=== PATIENT | male | born 1965 | race Caucasian/White ===

== ENCOUNTER 2017-11-27 00:46 | Observation (INO) | payer OTHER ==
[~2017-11-27] VITALS: Ht 193 cm; Wt 63.5 kg
--- NOTE | 2017-11-27 01:05 | ED GI/GU/ABDOMINAL COMPLAINT ---
History of Present Illness General Chief Complaint: Abdominal Pain/Flank Pain Stated Complaint: RUQ ABD PAIN Source: patient Exam Limitations: clinical condition (severe pain) Vital Signs & Intake/Output Vital Signs & Intake/Output Vital Signs Date Time Temp Pulse Resp B/P B/P Pulse O2 O2 Flow FiO2 Mean Ox Delivery Rate 11/27 0539 98.4 85 16 111/61 99 Room Air 11/27 0338 98.3 87 18 118/80 96 Room Air 11/27 0050 98.2 106 18 126/89 96 Room Air Allergies Coded Allergies: No Known Allergies (11/27/17) Reconcile Medications No Known Home Medications Triage Note: PT BIBA FROM HOME WITH C/O SHARP RUQ ABD PAIN THAT STARTED 2 HOURS AGO. PT APPEARS VERY UNCOMFORTABLE. DENIES N/V. STATES HE HAS A HERNIA WITH CONSTANT DULL PAIN BUT THIS IS DIFFERENT Triage Nurses Notes Reviewed? yes Onset: Gradual Duration: hour(s):, constant, changing over time, continues in ED, getting worse Quality/Severity: sharpness, severe, stabbing Location: right lower quadrant, right upper quadrant Radiation: no radiation HPI: Patient presents for evaluation of a right upper quadrant abdominal pain that began a few days ago. Described as a sharp pain that seemed to occur after eating. Patient denies any prior episodes like this. The pain is considered sharp and severe and nothing seems to make it feel better. (Kierra MONTENEGRO,Viraj Lamb) Past History Travel History Traveled to [place] past 21 day No Medical History Any Pertinent Medical History? 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 No (Viraj Lozada MD) Review of Systems Review of Systems Constitutional: Reports: no symptoms. EENTM: Reports: no symptoms. Respiratory: Reports: no symptoms. Cardiovascular: Reports: no symptoms. GI: Reports: see HPI. Genitourinary: Reports: no symptoms. Musculoskeletal: Reports: no symptoms. Skin: Reports: no symptoms. Neurological/Psychological: Reports: no symptoms. Hematologic/Endocrine: Reports: no symptoms. Immunologic/Allergic: Reports: no symptoms. All Other Systems: Reviewed and Negative (Kierra MONTENEGRO,Viraj Lamb) Physical Exam Physical Exam Gastrointestinal: SEE BELOW Comments: Gen.: Well-nourished, well-developed, no acute respiratory distress. Head: Normocephalic, atraumatic. Eyes: Normal inspection bilaterally Ears: Normal inspection bilaterally Nose: Normal inspection Throat/mouth : Moist mucosa Neck: Supple, full range of motion, no goiter Heart: Regular rate and rhythm, no murmurs rubs or gallops Lungs: Clear to auscultation bilaterally with normal air entry Chest: Nontender Back: Normal range of motion Abdomen: Soft, right upper quadrant and epigastric tenderness with brief voluntary guarding but no rebound nondistended, normal bowel sounds Extremities: Normal range of motion grossly, equal radial pulses, no cyanosis clubbing or edema Neurologic: Cranial nerves grossly intact, speech is clear Skin: warm and dry Psychiatric: Calm, cooperative, no apparent delusions or hallucinations Core Measures ACS in differential dx? No Sepsis Present: No Sepsis Focused Exam Completed? No (Kierra MONTENEGRO,Viraj Lamb) Progress Differential Diagnosis: BILIARY COLIC, RENAL COLIC, LIVER DISEASE, PANCREATITIS, BOWEL OBSTRUCTION Plan of Care: Orders Procedure Date/time Status Nothing by Mouth 11/27 B Active EKG 11/27 0330 Active URINALYSIS 11/27 010 Complete LIPASE 11/27 010 Complete COMPREHENSIVE METABOLIC PANEL 11/28 103 Complete CBC WITHOUT DIFFERENTIAL 11/28 103 Complete Laboratory Tests 11/27/17 0251: Urinalysis MANY H, Urine Color YEL, Urine Clarity CLDY H, Urine pH 7.5, Ur Specific [place] 1.020, Urine Protein NEG, Urine Ketones >=80, Urine Nitrite NEG , Urine Bilirubin NEG, Urine Urobilinogen 1.0, Ur Leukocyte Esterase NEG, Ur Microscopic SEDIMENT EXAMINED, Urine WBC RARE, Ur Epithelial Cells RARE, Urine Mucus RARE, Urine Hemoglobin NEG, Urine Glucose NEG 11/27/17 0111: Anion Gap 14, Estimated GFR > 60, BUN/Creatinine Ratio 17.0, Glucose 122 H, Calcium 10.4 H, Total Bilirubin 0.8, AST 19, ALT 24, Alkaline Phosphatase 111, Total Protein 7.8, Albumin 4.4, Globulin 3.4, Albumin/Globulin Ratio 1.3, Lipase 94, CBC w Diff NO MAN DIFF REQ, RBC 5.42, MCV 89.2, MCH 30.4, MCHC 34.0, RDW 13.6, MPV 8.4, Gran % 82.6 H, Lymphocytes % 10.4 L, Monocytes % 5.5, Eosinophils % 1.1, Basophils % 0.4, Absolute Granulocytes 9.3 H, Absolute Lymphocytes 1.2, Absolute Monocytes 0.6, Absolute Eosinophils 0.1, Absolute Basophils 0 Diagnostic Imaging: Discussed w/RAD: CT Scan. Radiology Impression: PATIENT: CARMELO ZEPEDA PRESENT AGE: 52 PATIENT ACCOUNT NO: [id number] : 63 LOCATION: [facility] ORDERING PHYSICIAN: Viraj Lozada MD SERVICE DATE: 11/27/17 EXAM TYPE: CAT - CT ABD & PELVIS W/O IV CONTRAS EXAMINATION: CT ABDOMEN AND PELVIS WITHOUT CONTRAST CLINICAL INFORMATION: Right-sided abdominal pain, sharp and intermittent. COMPARISON: None TECHNIQUE: Multidetector volumetric imaging was performed from the superior aspect of the liver through the pubic symphysis. Sagittal and coronal reformatted images were obtained on the technologist's workstation. DLP: 334 mGy-cm FINDINGS: LUNG BASES: The visualized lung bases are unremarkable. LIVER, GALLBLADDER, AND BILIARY TREE: The liver is normal in size, shape, and attenuation. No focal hepatic lesion or biliary ductal dilatation is present. The gallbladder is unremarkable with no evidence of radiopaque gallstones, gallbladder wall thickening, or obvious pericholecystic inflammatory changes. PANCREAS: Unremarkable. SPLEEN: Unremarkable. ADRENAL GLANDS: Unremarkable. KIDNEYS AND URETERS: The kidneys are normal in size, shape, and attenuation. No hydronephrosis, hydroureter, or calculi seen. No perinephric stranding. BLADDER: Unremarkable. GASTROINTESTINAL TRACT: The stomach is distended without wall thickening. The proximal small bowel is normal in caliber. There are loops of small bowel in the pelvis which are dilated with air -fluid levels. There is a large left inguinal hernia containing small bowel, with dilated bowel proximal to entry into the hernia and decompressed bowel beyond the hernia. Inflammatory changes are also noted within the hernia sac. No colonic wall thickening or inflammatory change. Gas and stool in the colon. ABDOMINAL WALL: Large left inguinal hernia containing small bowel and fluid. LYMPH NODES: Normal. VASCULAR: Unremarkable. PELVIC VISCERA: The prostate and seminal vesicles are unremarkable. OSSEOUS STRUCTURES: No acute or suspicious osseous abnormality. Mild degenerative changes of the spine and hips. IMPRESSION : Findings suggestive of a partial or early small bowel obstruction, with the lead point at a large left inguinal hernia. Small bowel is seen within the hernia sac with fluid as well. Cannot exclude an incarcerated hernia. DICTATED BY: Navneet Henry MD DATE/TIME DICTATED:11/27/17133 PRODUCT SAFETY HEAD: ABDOULAYE DATE/TIME TRANSCRIBED:11/27/17133 CONFIDENTIAL, DO NOT COPY WITHOUT APPROPRIATE AUTHORIZATION. <Electronically signed in Other Vendor System> SIGNED BY: Carl MONTENEGRO,Navneet 11/27/17 0140 Initial ED EKG: NSR, no ST T wave changes Comments: 11/27/2017 1:56:42 AM I have updated Carmelo on his CAT scan report and with additional exam of the scrotum, the patient does have an incarcerated left inguinal hernia. I've discussed this case with Dr. Fields and have just paged the surgical PA. 11/27/2017 6:59:18 AM patient evaluated by the surgical PA and orders placed. Patient will be taken to the OR this morning for surgical correction of his incarcerated hernia. 11/27/2017 7:15:53 AM patient signed out to Dr. Melgoza at shift exchange consultant. (Kierra MONTENEGRO,Viraj Lamb) Departure Departure Disposition: STILL A PATIENT Condition: Stable Clinical Impression Primary Impression: Incarcerated left inguinal hernia Secondary Impressions: Partial small bowel obstruction Referrals: Dominick Mock MD (PCP/Family) Departure Forms: Customer Survey General Discharge Information Prescriptions: Current Visit Scripts No Known Home Medications OR/GI Note Spoke With: Pablito Leavitt DO ED Treatment Decision: CARMELO ZEPEDA requires urgent operative management of a left inguinal hernia, incarcerated, that cannot be performed in the Emergency Room setting. Transport To: [facility] (Viraj Lozada MD) Departure Disposition: STILL A PATIENT Condition: Stable Clinical Impression Primary Impression: Incarcerated left inguinal hernia Secondary Impressions: Partial small bowel obstruction Referrals: Dominick Mock MD (PCP/Family) Departure Forms: Customer Survey General Discharge Information Prescriptions: Current Visit Scripts No Known Home Medications OR/GI Note Spoke With: Pablito Leavitt DO ED Treatment Decision: CARMELO ZEPEDA requires urgent operative management of a left inguinal hernia, incarcerated, that cannot be performed in the Emergency Room setting. Transport To: [facility]
[2017-11-27 01:19] LABS: ABSOLUTE BASOPHIL COUNT 0 /CUMM (0.0-0.2); ABSOLUTE EOSINOPHIL COUNT 0.1 /CUMM (0.0-0.7); ABSOLUTE GRANULOCYTE CT 9.3 /CUMM (1.4-6.5); ABSOLUTE LYMPH COUNT 1.2 /CUMM (1.2-3.4); ABSOLUTE MONOCYTE COUNT 0.6 /CUMM (0.10-0.60); BASOPHIL % 0.4 % (0.0-2.0); EOSINOPHIL % 1.1 % (0-5); GRANULOCYTE % 82.6 % (42.2-75.2); HEMATOCRIT 48.4 % (42-52); MEAN CORPUSCULAR HGB 30.4 PG (27.0-31.0); MEAN CORPUSCULAR VOLUME 89.2 FL (80.0-94.0); MEAN PLATELET VOLUME 8.4 FL (7.4-10.4); PLATELET COUNT 314 /CUMM (130-400); RBC DISTRIBUTION WIDTH 13.6 % (11.5-14.5); RED BLOOD CELL CT 5.42 /CUMM (4.70-6.10); WHITE BLOOD CELL COUNT 11.2 /CUMM (4.8-10.8)
--- NOTE | 2017-11-27 01:40 | CT SCAN REPORT ---
EXAMINATION: CT ABDOMEN AND PELVIS WITHOUT CONTRAST CLINICAL INFORMATION: Right-sided abdominal pain, sharp and intermittent. COMPARISON: None TECHNIQUE: Multidetector volumetric imaging was performed from the superior aspect of the liver through the pubic symphysis. Sagittal and coronal reformatted images were obtained on the technologist's workstation. DLP: 334 mGy-cm FINDINGS: LUNG BASES: The visualized lung bases are unremarkable. LIVER, GALLBLADDER, AND BILIARY TREE: The liver is normal in size, shape, and attenuation. No focal hepatic lesion or biliary ductal dilatation is present. The gallbladder is unremarkable with no evidence of radiopaque gallstones, gallbladder wall thickening, or obvious pericholecystic inflammatory changes. PANCREAS: Unremarkable. SPLEEN: Unremarkable. ADRENAL GLANDS: Unremarkable. KIDNEYS AND URETERS: The kidneys are normal in size, shape, and attenuation. No hydronephrosis, hydroureter, or calculi seen. No perinephric stranding. BLADDER: Unremarkable. GASTROINTESTINAL TRACT: The stomach is distended without wall thickening. The proximal small bowel is normal in caliber. There are loops of small bowel in the pelvis which are dilated with air-fluid levels. There is a large left inguinal hernia containing small bowel, with dilated bowel proximal to entry into the hernia and decompressed bowel beyond the hernia. Inflammatory changes are also noted within the hernia sac. No colonic wall thickening or inflammatory change. Gas and stool in the colon. ABDOMINAL WALL: Large left inguinal hernia containing small bowel and fluid. LYMPH NODES: Normal. VASCULAR: Unremarkable. PELVIC VISCERA: The prostate and seminal vesicles are unremarkable. OSSEOUS STRUCTURES: No acute or suspicious osseous abnormality. Mild degenerative changes of the spine and hips. IMPRESSION: Findings suggestive of a partial or early small bowel obstruction, with the lead point at a large left inguinal hernia. Small bowel is seen within the hernia sac with fluid as well. Cannot exclude an incarcerated hernia.
--- NOTE | 2017-11-27 03:17 | History & Physical Pre-Op ---
MajoPrincess 11/27/17 0302: General Information and HPI MD Statement: I have seen and personally examined MAGDALENE ZEPEDA and documented this H&P. The patient is a 52 year old M who presented with a patient stated chief complaint of ABDOMINAL PAIN, Source of Information: patient Exam Limitations: no limitations History of Present Illness: 52 y/o male presents to ER with left groin and generalized abdominal pain. He has a 2 year history of a sliding hernia and usually he can maunally self- reduce. over the last few weeks he has noticed problems with reducing his hernia and tonight he was unable to despite his usual measures. He has pain and fullness in the groin with radiating abdominal pain into the RUQ. His pain is controlled at a 3. He denies fevers or chills. He has nausea with decreased appetite, BM this am was normal. 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 EENTM: Denies: no symptoms. Cardiovascular: Denies: chest pain, edema, palpitations. Respiratory: Denies: cough, short of breath. GI: Reports: abdominal pain, nausea. Denies: bloating, constipation, diarrhea, distention, bloody stool, vomiting. Genitourinary: Denies: no symptoms. Hematologic/Endocrine: Denies: bruising, bleeding. Exam & Diagnostic Data Last 24 Hrs of Vital Signs/I&O Vital Signs Date Time Temp Pulse Resp B/P B/P Pulse O2 O2 Flow FiO2 Mean Ox Delivery Rate 11/27 0050 98.2 106 18 126/89 96 Room Air Physical Exam: Patient is alert and oriented, pain controlled answers questions HEENT -WNL Neck -supple, NT, no bruits chest -CTA symmetric heart-RRR without MRG Abdomen -flat, without distention, generalized tenderness, no guarding or rebound left groin - fullness palpated into the scrotum -large hernia with bowel contents bilateral lower extremities - no edema, calves soft Assessment/Plan Assessment/Plan: CT -Findings suggestive of a partial or early small bowel obstruction, with the lead point at a large left inguinal hernia. Small bowel is seen within the hernia sac with fluid as well. Cannot exclude an incarcerated hernia. 52 y/o with left incarcerated inguinal hernia Plan - OR this morning, discussed patient with Dr. Leavitt NPO, fluids, pain meds healthy male without medical problems As Ranked By This Provider Problem List: 1. Incarcerated left inguinal hernia Admission Lab Results I reviewed the following labs: Laboratory Tests 11/27 11/27 0251 0111 Chemistry Sodium (137 - 145 mmol/L) 143 Potassium (3.5 - 5.1 mmol/L) 3.6 Chloride (98 - 107 mmol/L) 100 Carbon Dioxide (22 - 30 mmol/L) 28 Anion Gap (5 - 16) 14 BUN (9 - 20 mg/dL) 17 Creatinine (0.7 - 1.2 mg/dL) 1.0 Estimated GFR (>60 ml/min) > 60 BUN/Creatinine Ratio (7 - 25 %) 17.0 Glucose (65 - 99 mg/dL) 122 H Calcium (8.4 - 10.2 mg/dL) 10.4 H Total Bilirubin (0.2 - 1.3 mg/dL) 0.8 AST (17 - 59 U/L) 19 ALT (21 - 72 U/L) 24 Alkaline Phosphatase (< 127 U/L) 111 Total Protein (6.3 - 8.2 g/dL) 7.8 Albumin (3.5 - 5.0 g/dL) 4.4 Globulin (1.9 - 4.2 gm/dL) 3.4 Albumin/Globulin Ratio (1.1 - 2.2 %) 1.3 Lipase (23 - 300 U/L) 94 Hematology CBC w Diff NO MAN DIFF REQ WBC (4.8 - 10.8 /CUMM) 11.2 H RBC (4.70 - 6.10 /CUMM) 5.42 Hgb (14.0 - 18.0 G/DL) 16.5 Hct (42 - 52 %) 48.4 MCV (80.0 - 94.0 FL) 89.2 MCH (27.0 - 31.0 PG) 30.4 MCHC (33.0 - 37.0 G/DL) 34.0 RDW (11.5 - 14.5 %) 13.6 Plt Count (130 - 400 /CUMM) 314 MPV (7.4 - 10.4 FL) 8.4 Gran % (42.2 - 75.2 %) 82.6 H Lymphocytes % (20.5 - 51.1 %) 10.4 L Monocytes % (1.7 - 9.3 %) 5.5 Eosinophils % (0 - 5 %) 1.1 Basophils % (0.0 - 2.0 %) 0.4 Absolute Granulocytes (1.4 - 6.5 /CUMM) 9.3 H Absolute Lymphocytes (1.2 - 3.4 /CUMM) 1.2 Absolute Monocytes (0.10 - 0.60 /CUMM) 0.6 Absolute Eosinophils (0.0 - 0.7 /CUMM) 0.1 Absolute Basophils (0.0 - 0.2 /CUMM) 0 Urines Urinalysis MANY H Urine Color (YEL,AMB,STR) YEL Urine Clarity (CLEAR) CLDY H Urine pH (5.0 - 8.0) 7.5 Ur Specific [place] (1.001 - 1.035) 1.020 Urine Protein (NEG,<30 MG/DL) NEG Urine Ketones (NEG) >=80 Urine Nitrite (NEG) NEG Urine Bilirubin (NEG) NEG Urine Urobilinogen (0.1 - 1.0 EU/dl) 1.0 Ur Leukocyte Esterase (NEG) NEG Ur Microscopic SEDIMENT EXAMINED Urine WBC (0 - 2 /HPF) RARE Ur Epithelial Cells (NONE,FEW) RARE Urine Mucus (FEW,NONE) RARE Urine Hemoglobin (NEG) NEG Urine Glucose (N MG/DL) NEG Dagmar Pablito 11/27/17 0927: Attending MD Review Statement Attending Statement Attending MD Statement: examined this patient, discuss w/resident/PA/CERTIFIED INDOOR ENVIRONMENTALIST, agreed w/resident/PA/CERTIFIED INDOOR ENVIRONMENTALIST, discussed with family, reviewed EMR data (avail), reviewed images Attending Assessment/Plan: Patient seen and examined, agree with above. Chronic large left inguinal hernia that has been getting bigger and more difficult to reduce over the past couple of weeks. Last night was unable to reduce and had abdominal pain. Currently comfortable with just a dull left groin ache. AVSS. Abd-soft, NT.ND. Left groin scrotal hernia, non-reducible, no skin changes. Labs ok. CT scan - left inguinal hernia with partial obstruction. NPO/IVF, plan for an open repair with possible mesh and possible bowel resection. Discussed with patient, family, and ED staff.
--- NOTE | 2017-11-27 09:37 | Operative Report ---
Operative/Inv Procedure Report Surgery Date: 11/27/17 Name of Procedure: Open left inguinal hernia repair with mesh Pre-Operative Diagnosis: Incarcerated left inguinal hernia with obstruction Post-Operative Diagnosis: Same Estimated Blood Loss: less than 50ml Surgeon/Yard Coupler: Pablito Phelan Anesthesia: general endotracheal tube IV Fluids: 1200 cc Drains: None Specimens: Hernia sac Complications: None Condition: Stable Operative Indication: This is a 52-year-old male that presented to the emergency room with abdominal pain. After appropriate workup was completed the patient was diagnosed with an incarcerated left inguinal hernia causing a partial obstruction. Patient with a long history of the large hernia that would reduce manually but has gotten harder and harder to reduce over the past couple weeks. An open repair with possible mesh and possible bowel resection were discussed in detail. All risks including but not limited to bleeding, infection, chronic pain, recurrence, and injury to surrounding structures were discussed in detail. I explained that if there was bowel ischemia may not be able to use synthetic mesh. I also explained that if the bowel is ischemic patient may need a laparotomy incision for a small bowel resection. The patient and the understood everything and decided to proceed. Operative/Procedure Note Note: The patient was brought to the operating room and placed on operating room table in supine position. Venodyne stockings were placed and adequate general endotracheal anesthesia was obtained. A TAP block was performed by anesthesia. Patient was prepped and draped in standard surgical fashion. A 5-6 cm incision was made over the patient's left groin. Incision was carried through subcutaneous tissue down to Mario's fascia which was divided using Bovie electrocautery. External oblique aponeurosis was encountered and opened along its fibers. It was opened up to the external ring and right away we noted a large hernia sac extending down into the scrotum. As the external oblique aponeurosis was fully opened the hernia contents self reduced. The hernia sac was dissected away from surrounding structures using Bovie electrocautery and blunt dissection. The hernia sac was noted to be very big and adherent to surrounding structures. Cord structures were visualized and preserved. The hernia sac was dissected all the way down to the base and that it was opened. The bowel was visualized and no obvious ischemia was noted. At that point the hernia sac was a transected at the base and closed using 2-0 Vicryl suture. At the completion the hernia sac itself reduced. The left groin was then examined, no obvious bleeding was noted cord structures were intact. At that point a program mesh with a keyhole opening was placed appropriately around the cord. The mesh was lying flat overlying all defects. Left groin was irrigated until clear. External oblique aponeurosis was closed using 2-0 Vicryl suture. Mario 's fascia was closed using 3-0 Vicryl suture. Skin was closed using 4-0 Monocryl. Steri-Strips and dressings were placed. The patient was successfully extubated and transferred to recovery room in stable condition. The patient tolerated the procedure well with no complications. Findings were discussed with the patient's immediately after surgery. Findings: Large indirect defect with large hernia sac extending into the scrotum, no evidence of ischemia, Progrip left sided mesh used CC: Emili MONTENEGRO,Dominick Jackman
[2017-11-27] MEDS ORDERED: PERCOCET 5-3251 EACH PO (09:49)
--- NOTE | 2017-11-27 09:57 | Patient Discharge Instructions ---
Discharge Instructions General Discharge Information You were seen/treated for: incarcerated inguinal hernia left You had these procedures: repair of left inguinal hernia with mesh Watch for these problems: fevrs, chills, wound drainge redness, leg swelling, SOB or chest pain Call Surgeon to remove: Other No bath, but you may shower: Yes (apply waterproof bandaid) Other wound care: keep clean an dry, cover with occlusive dressing after 48 hours Special Instructions: call office for follow-up appointment, no strenuous activies or heavy lifting until cleared by your surgeon Diet Continue normal diet: Yes Recommended Diet: Regular Activity Full Activity/No Limits: No Activity Self Limited: Yes Acute Coronary Syndrome Inclusion Criteria At DC or during hospital stay patient has or had the following: ACS DIAGNOSIS No Discharge Core Measures Meds if any: Prescribed or Continued at Discharge LEONEL/ARB if EF <40% No Aspirin No Beta-Daniella No Statin No Meds if any: NOT Prescribed or Continued at Discharge Congestive Heart Failure Inclusion Criteria At DC or during hospital stay patient has or had the following: CHF DIAGNOSIS No Discharge Core Measures Meds if any: Prescribed or Continued at Discharge Meds if any: NOT Prescribed or Continued at Discharge Cerebrovascular accident Inclusion Criteria At DC or during hospital stay patient has or had the following: CVA/TIA Diagnosis No Discharge Core Measures Meds if any: Prescribed or Continued at Discharge Meds if any: NOT Prescribed or Continued at Discharge Venous thromboembolism Inclusion Criteria VTE Diagnosis No VTE Type NONE VTE Confirmed by (Test) NONE Discharge Core Measures - Per Current guidelines, there needs to be overlap - treatment for the first 5 days of Warfarin therapy. - If discharged on Warfarin prior to 5 days of - overlap therapy, the patient will need to be - assessed for post discharge needs including - *Post discharge parental anticoagulation - *Warfarin and/or parental anticoagulation education - *Follow up date to check INR post discharge At least 5 days overlap therapy as Inpatient No Meds if any: Prescribed or Continued at Discharge Note: Overlap Therapy is Warfarin and Anticoagulant Meds if any: NOT Prescribed or Continued at Discharge
[2017-11-27 13:30] VITALS: BP 123/89
--- NOTE | 2017-11-27 15:48 | PN- General Surgery ---
Subjective Subjective: poc s/p open repair of left inc ing hernia sitting up in bed eating clear lunch denies cp, sob, no n+v with diet Objective Vital Signs and I&Os Vital Signs Date Time Temp Pulse Resp B/P B/P Pulse O2 O2 Flow FiO2 Mean Ox Delivery Rate 11/27 1419 Room Air 11/27 1330 98.3 77 20 123/89 11/27 0639 98.4 85 16 111/61 99 Room Air 11/27 0338 98.3 87 18 118/80 96 Room Air 11/27 0050 98.2 106 18 126/89 96 Room Air Intake & Output 11/27 1600 11/27 0800 11/27 0000 11/26 1600 11/26 0800 11/26 0000 Intake Total Output Total 500 Balance -500 Output, Urine 500 Physical Exam: cv: rrr lungs: clear abd: soft, +bs bandage dry no clyde incisional hematoma ext: warm, distal cms intact Assessment/Plan Assessment/Plan surgical stable plan cont oob advance diet possible d/c home in am Core Measures Venous Thromboembolism VTE Risk Factors Surgery No Mechanical VTE Prophylaxis d/t N/A MechProphylax Ordered No VTE Pharm Prophylaxis d/t NA PharmProphylax ordered
[2017-11-27 21:59] VITALS: BP 124/83
[2017-11-28 06:20] VITALS: BP 112/66
--- NOTE | 2017-11-28 12:32 | PN- General Surgery ---
Subjective Subjective: s/p repair of left inc inguinal hernia repair doing well no complaints tolerating clear diet denies cp, sob, no n+v with clears ambulating indepdently without difficulty Objective Vital Signs and I&Os Vital Signs Date Time Temp Pulse Resp B/P B/P Pulse O2 O2 Flow FiO2 Mean Ox Delivery Rate 11/29 619 98.2 75 18 112/66 96 Room Air 11/27 2159 98.1 82 18 124/83 96 11/27 1419 Room Air 11/27 1330 98.3 77 20 123/89 Intake & Output 11/28 1600 11/28 0811/28 0000 11/27 1600 11/27 0800 11/27 0000 Intake Total 225 520 240 Output Total 375 500 Balance 225 145 240 -500 Intake, IV 125 120 Intake, Oral 100 400 240 Number 0 Bowel Movements Output, Urine 375 500 Patient 140 lb Weight Weight Reported by Patient Measurement Method Physical Exam: cv: rrr lungs: clear abd; soft, flat drsg dry active bs ext: warm, distal cms intact Assessment/Plan Assessment/Plan surgical stable plan oob/ambualte advance to full liquid diet possible d/c home later this afternoon Core Measures Venous Thromboembolism VTE Risk Factors Surgery No Mechanical VTE Prophylaxis d/t N/A MechProphylax Ordered No VTE Pharm Prophylaxis d/t NA PharmProphylax ordered
--- NOTE | 2017-11-28 13:54 | Surg Short-stay <48hrs Dis Sum ---
Visit Information Visit Dates Admission Date: 11/27/17 Discharge Date: 11/28/17 Surgical Short Stay DC Summary Admission Diagnosis: Incarcerated left inguinal hernia Final Diagnosis: Incarcerated left inguinal hernia Procedure(s): Open repair of incarcerated left inguinal hernia with mesh Summary/Significant Findings: Mr. Salter taken to the operating room on 11/27/2017 for incarcerated left inguinal hernia. He tolerated the procedure well and was transferred to the floor postoperatively. He was out of bed ambulating the day of surgery and postop day 1 without difficulty. Diet advanced to full liquid. And upon discharge had a full formed bowel movement. We'll stays otherwise unremarkable Condition at Discharge: Stable Discharge Disposition: home or self care Discharge instructions provided to patient/family: Yes Post discharge follow-up plan: Follow-up with Dr. Fields next week
[2017-11-28] MEDS ORDERED: PERCOCET 5-3251 EACH PO (15:57)
== END 2017-11-28 15:22 ==
LOC: ERH 00:46 → 2NA 07:36 → ERH 07:36 → PACUH 09:48 → ENRESERV 12:14 → ENTRNSPT 13:21 → EDTRNSPT 13:29 → EDTRNSPTSTS 13:29 → 2NA 13:34 → CMPTRNSPT 13:36 → ENPENDDIS 11-28 14:03 → 2NA 11-28 15:22
PROVIDERS: Emergency Medicine
DX: K40.30 Unilateral inguinal hernia, with obstruction, without gangrene, not specified as recurrent (principal)
CPT/HCPCS: 1255; 74176; 81001; 82436; 93005; 93010; 96374; 96375; 96376; C1781; G0378; J0131; J0690; J1644; J1885; J2250; J2405; J3010; J3490; J7042